=== PATIENT | male | born 1990 | race Two or more races ===

== ENCOUNTER 2018-09-25 18:09 | Emergency (ER) | payer OTHER ==
[~2018-09-25] VITALS: Ht 177.8 cm; Wt 136.1 kg
[2018-09-25] MEDS ORDERED: NKM (18:11)
[2018-09-25 18:13] VITALS: BP 143/97
--- NOTE | 2018-09-25 18:14 | NUR ---
ED Nurse Note: Patient brought in to ER by ambulance due to back pain 12/13. Patient is aao x4 and non-ambulatory due to weakness. skin clean and intact. calm and cooperative but moaning due to severe pain. vss as documented.
--- NOTE | 2018-09-25 18:21 | NUR ---
ED Nurse Note: pt reported that he was closing a drawer 2 weeks ago and started having pain.
--- NOTE | 2018-09-25 18:33 | NUR ---
ED Nurse Note: pt went down for exams in [facility] in stable condition.
--- NOTE | 2018-09-25 18:45 | NUR ---
ED Nurse Note: pt came back from x-ray in stable condition.
--- NOTE | 2018-09-25 18:58 | NUR ---
ED Nurse Note: US initiated at bedside.
--- NOTE | 2018-09-25 19:15 | NUR ---
HAND-OFF: Report given to CODY Goodwin. no order to carry at this moment. US done.
--- NOTE | 2018-09-25 19:15 | NUR ---
ED Nurse Note: Patient relaxing in supine position with family member at bedside.
--- NOTE | 2018-09-25 19:18 | Diagnostic Imaging Report ---
Indication: Back pain Comparison: None Findings: 3 views of the lumbar spine were obtained. No acute fracture or malalignment is identified. Vertebral body heights and disk spaces are well maintained. Posterior elements are unremarkable. Impression: No acute findings.
--- NOTE | 2018-09-25 19:21 | Emergency Room Report ---
History of Present Illness General Chief Complaint: Back Pain-No Injury Source: EMS Present Illness HPI 28-year-old male with no significant past medical history with morbid obesity here complaining of 2 weeks of low back pain keeping him on ambulatory for the past 2 weeks. Patient reports that he bent over 2 weeks ago to get his sock out of a drawer when he felt a 10 out of 10 sharp pain in his lumbar region. Denies pain radiation, urinary and bowel incontinence. Denies saddle paresthesia, numbness and tingling. Patient reports that he has been in bed for the past 2 weeks however getting help with urination and eating. Patient appears to be in clean clothes and not presenting as someone who has been urinating at bedside. Patient has been taking ibuprofen on a daily basis for his pain. Patient called the paramedics 2 weeks ago to be transported to an emergency room paramedics told him to wait for a few days if not feeling better called the ambulance again. Patient called EMS today 2 weeks later complaining of 10 out of 10 pain. Patient is here with his mom. Denies chest pain, shortness of breath, palpitation, abdominal pain, nausea vomiting. Patient is requesting time off from work. Has not seen his primary care provider. Patient complains of minimal cramping in the right lower extremity. However denies calf tenderness. Denies tingling or numbness. Patient reports that something like this happened to have a few years ago and was diagnosed with pinched nerve in the same area. Denies any direct fall or injury. Allergies: Coded Allergies: No Known Allergies (Unverified , 09/25/18) Patient History Past Medical History: see triage record Past Surgical History: unable to obtain Pertinent Family History: none Immunizations: UTD Reviewed Nursing Documentation: PMH: Agreed; PSxH: Agreed Nursing Documentation-PMH Past Medical History: No Stated History Review of Systems All Other Systems: negative except mentioned in HPI Physical Exam Vital Signs Date Time Temp Pulse Resp B/P (MAP) Pulse Ox O2 Delivery O2 Flow Rate FiO2 09/25/18 18:07 98.6 82 16 143/97 (112) 100 Room Air Sp02 EP Interpretation: reviewed, normal General Appearance: well appearing, mild distress Head: normocephalic, atraumatic Eyes: bilateral eye normal inspection, bilateral eye PERRL ENT: normal ENT inspection, hearing grossly normal, normal pharynx, no angioedema Neck: full range of motion, supple, thyroid normal, no meningismus Respiratory: normal inspection, chest non-tender, lungs clear, no rhonchi, no wheezing Cardiovascular #1: normal inspection, normal peripheral pulses, regular rate, rhythm, no murmur Gastrointestinal: normal inspection, non tender, soft, no mass, no organomegaly , no peritonitis Rectal: deferred Genitourinary: no CVA tenderness Musculoskeletal: back normal, digits/nails normal, non-tender, no calf tenderness, pelvis stable Neurologic: normal inspection, alert, oriented x3, responsive, dry cleaner helper III-XII nml as tested Psychiatric: normal inspection, judgement/insight normal, memory normal Skin: no rash, palpation normal Lymphatic: normal inspection, no adenopathy Medical Decision Making PA Attestation All my diagnosis and treatment plans were reviewed ad discussed with my supervising physician Dr. Lackey Diagnostic Impression: Primary Impression: Lumbar spine strain ER Course 28-year-old male with no significant past medical history with morbid obesity here complaining of 2 weeks of low back pain keeping him on ambulatory for the past 2 weeks. Patient reports that he bent over 2 weeks ago to get his sock out of a drawer when he felt a 10 out of 10 sharp pain in his lumbar region. Denies pain radiation, urinary and bowel incontinence. Denies saddle paresthesia, numbness and tingling. Patient reports that he has been in bed for the past 2 weeks however getting help with urination and eating. Patient appears to be in clean clothes and not presenting as someone who has been urinating at bedside. Patient has been taking ibuprofen on a daily basis for his pain. Patient called the paramedics 2 weeks ago to be transported to an emergency room paramedics told him to wait for a few days if not feeling better called the ambulance again. Patient called EMS today 2 weeks later complaining of 10 out of 10 pain. Patient is here with his mom. Denies chest pain, shortness of breath, palpitation, abdominal pain, nausea vomiting. Patient is requesting time off from work. Has not seen his primary care provider. Patient complains of minimal cramping in the right lower extremity. However denies calf tenderness. Denies tingling or numbness. Patient reports that something like this happened to have a few years ago and was diagnosed with pinched nerve in the same area. Denies any direct fall or injury. Ddx considered but are not limited to: Lumbar spine sprain, strain, fracture, contusion, neuropathy, DVT Vital signs: are WNL, pt. is afebrile H&PE are most consistent with: Lumbar spine strain ORDERS: Lumbar spine x-ray, right lower extremity venous duplex, naproxen, Robaxin, ER intervention: Toradol, baclofen DISCHARGE: At this time pt. is stable for d/c to home. Will provide printed patient care instructions, and any necessary prescriptions. Care plan and follow up instructions have been discussed with the patient prior to discharge. Patient asked to be transferred ported back the ambulance he decides to pay for an ambulance himself. No indication to keep the patient and admit him as this is a musculoskeletal issue and patient to follow-up with a primary care provider she is stable at time of discharge patient is able to move himself from supine to sitting position however complains of 10 out of 10 pain however since he has been able to sit up eat and ambulate at home no further assessment is needed. Patient to follow-up with a primary care provider for more time off from work physical therapy advised as well as weight loss. Other X-Ray Diagnostic Results Other X-Ray Diagnostic Results : X-Ray ordered: Lumbar spine # of Views/Limited Vs Complete: 3 View Indication: Pain EP Interpretation: Yes NASIR Xray: Interpretation reviewed, by supervising MD, and agrees with findings. Interpretation: no dislocation, no soft tissue swelling, no fractures Impression: No acute disease Electronically Signed by: Bryant Badillo PA-C CT/MRI/US Diagnostic Results CT/MRI/US Diagnostic Results : Imaging Test Ordered: Right lower extremity venous duplex Impression Negative for DVT Last Vital Signs Date Time Temp Pulse Resp B/P (MAP) Pulse Ox O2 Delivery O2 Flow Rate FiO2 09/25/18 18:13 98.6 78 16 143/97 100 Room Air Disposition: HOME, SELF-CARE Condition: Stable Scripts Naproxen* (NAPROXEN*) 500 Mg Tablet 500 MG ORAL TWICE A DAY, #30 TAB Prov: Bryant Hall 09/25/18 Methocarbamol* (ROBAXIN*) 500 Mg Tablet 500 MG PO TID, #21 TAB 0 Refills Prov: Bryant Hall 7/23/19 Referrals: NOT CHOSEN [facility]/,REFERRING (PCP) Patient Instructions: Back Pain, Adult Additional Instructions: Weight loss advised follow-up with your primary care provider avoid strenuous physical activity and lifting heavy objects take medication as directed physical therapy may help you can be requested by your primary care provider Bryant Hall Sep 25, 2018 19:21
[2018-09-25] MEDS ORDERED: ROBAXIN500 MG PO (19:23)
[2018-09-25] MEDS ORDERED: NAPROXEN500 M2 ORAL (19:23)
[2018-09-25] MEDS ORDERED: Ketorolac 60mg Inj IM ONE (19:45)
--- NOTE | 2018-09-25 19:47 | NUR ---
ED Nurse Note: Patient cleared for discharge, patient medicated for pain prior to discharge. Patient verbalized understanding of discharge instructions. ID band removed. Patient departed with all personal belongings.
[2018-09-25 19:49] VITALS: BP 143/97
--- NOTE | 2018-09-25 20:25 | NUR ---
ED Nurse Note: Miguel unable to get up without assist, was waiting for friend for poultry picking machine tender. Will now call an [employer] for poultry picking machine tender.
--- NOTE | 2018-09-25 20:37 | NUR ---
ED Nurse Note: Patient is awaiting ambulance transport, will self pay.
--- NOTE | 2018-09-25 21:38 | NUR ---
ED Nurse Note: Patient is resting comfortably, no s/s of acute distress.
--- NOTE | 2018-09-25 22:44 | NUR ---
ED Nurse Note: Patient waiting patiently for transport to arrive due to difficulty sitting up. Patient's mom is still at bedside.
--- NOTE | 2018-09-26 00:35 | NUR ---
ED Nurse Note: BLS here for pick-up. Patient accompanied by mom upon departure.
--- NOTE | 2018-09-26 10:11 | Diagnostic Imaging Report ---
Indication: Right lower extremity pain and swelling. Technique: Duplex Doppler imaging performed from the right common femoral vein to the popliteal vein. FINDINGS: Normal compressibility demonstrated from the common femoral vein to the popliteal vein. Respiratory phasicity and good augmentation demonstrated on waveform analysis. There is no evidence of thrombosis. IMPRESSION: No evidence of deep venous thrombosis within the right lower extremity.
== END 2018-09-26 00:35 | disposition home or self-care (01) ==
LOC: EDBD 18:09 → EMR 19:06
DX: S39.012A Strain of muscle, fascia and tendon of lower back, initial encounter (principal); X50.1XXA Overexertion from prolonged static or awkward postures, initial encounter; Y92.9 Unspecified place or not applicable; E66.01 Morbid (severe) obesity due to excess calories; Z68.41 Body mass index [BMI] 40.0-44.9, adult
CPT/HCPCS: 72020; 93971; 96372; 99284